=== PATIENT | male | born 1965 | race Native Hawaiian/Other Pacific Islander ===

== ENCOUNTER 2020-11-06 17:54 | Emergency (ER) | payer BC ==
[~2020-11-06] VITALS: Ht 177.8 cm; Wt 104.3 kg
[2020-11-06 19:52] VITALS: BP 148/88; TEMP 98.5
== END 2020-11-06 19:52 | disposition home or self-care (01) ==
LOC: ED 17:54
DX: K02.9 Dental caries, unspecified (principal); Z03.818 Encounter for observation for suspected exposure to other biological agents ruled out; F17.210 Nicotine dependence, cigarettes, uncomplicated
CPT/HCPCS: 87635; 99283; U0003